=== PATIENT | female | born 1985 | race Caucasian/White ===

== ENCOUNTER 2024-03-27 10:37 | Emergency (ER) | payer OTHER, SELFPAY ==
[2024-03-27] VITALS (8 sets, daily range): BP systolic 85–102; BP diastolic 38–63; PULSE 61–96; RESP 14–18; TEMP 36.3–36.8; O2SAT 97–98; BMI 31.2
--- NOTE | ~2024-03-27 | XR_ITS ---
EXAMINATION: XR CHEST CLINICAL INFORMATION: Weakness with elevated white blood cell count. COMPARISON: None available. TECHNIQUE: Frontal view of the chest was obtained. FINDINGS: Limited portable exam. Lungs are hypoexpanded with questionable right lower airspace opacity. The cardiomediastinal silhouette is grossly normal. No sizable effusion. No pneumothorax. XR/XR chest 1V IMPRESSION: Limited exam. Hypoexpanded lungs with questionable airspace opacity in the right lower lung, atelectasis versus pneumonia.
--- NOTE | 2024-03-27 11:05 | ECG_ITS ---
Test Reason : HYPOTENSION Blood Pressure : / mmHG Vent. Rate : 070 BPM Atrial Rate : 070 BPM P-R Int : 166 ms QRS Dur : 090 ms QT Int : 420 ms P-R-T Axes : 035 044 034 degrees QTc Int : 454 ms Artifact in tracing Normal sinus rhythm Normal EKG No previous ECGs available Referred By: Elaina Maza Electronically Signed By:JOSE ROBERTO GAINES
--- NOTE | 2024-03-27 11:10 | ED_ITS ---
HPI - Weakness General Chief complaint: Recheck/Abnormal Lab/Rx Stated complaint: AMS,ABN LABS FROM [facility] PER EMS Time Seen by Provider: 03/27/24 10:44 Source: patient and old records reviewed Mode of arrival: EMS Limitations: no limitations History of Present Illness ED Provider: MIGNON HPI Narrative: 38 yo female with PMH of depression, GERD states 3 weeks ago she was put on lithium 600mg BID and since then she has been messed up she notes she is sleepy and not doing well. She is eating and drinking but she feels tired all the time. She was in respite for depression and failed then went to [facility] ED from there admitted to [facility] on 03/21. Per records it looks like on admission her lithium was 1.1 but they continued it and her BP was low in the 80s yet they continued the lithium and continued her on ativan despite sedation. For the blood pressure they started her on midodrine 5mg TID. Her WBC count was also elevated at 15. I am unsure why today they transferred her as her WBC count has been elevated since 03/16 and they continue to give her lithium with another draw yesterday showing level of 1.4. It looks like she got her AM medications today. after discussion with staff they note the patient's lithium was decreased and held yesterday Complaint: generalized weakness Onset (ago): week(s) (2) Duration: progressively worsening Location: generalized Migration: none Severity: moderate Relieving factors: rest Exacerbating factors: movement and exertion Context: new medication (states it started with lithium) Associated symptoms: denies other symptoms Related Data Home Medications ?Medication ?Instructions ?Recorded ?Confirmed buprenorphine 8 mg-naloxone 2 mg 1 film sublingual BID 03/27/24 03/27/24 sublingual film (Suboxone) chlorpromazine 200 mg tablet 200 mg PO BEDTIME 03/27/24 03/27/24 dextroamphetamine-amphetamine 30 30 mg PO BID 03/27/24 03/27/24 mg tablet diphenhydramine HCl 50 mg capsule 50 mg BEDTIME 03/27/24 03/27/24 fluoxetine 20 mg capsule 20 mg PO DAILY 03/27/24 03/27/24 lithium carbonate 150 mg capsule 450 mg PO BID 03/27/24 03/27/24 lorazepam 1 mg tablet (Ativan) 1 mg PO TID 03/27/24 03/27/24 midodrine 5 mg tablet 5 mg PO TID 03/27/24 03/27/24 trazodone 100 mg tablet 100 mg PO BEDTIME 03/27/24 03/27/24 Allergies Allergy/AdvReac Type Severity Reaction Status Date / Time aripiprazole [From Abilify] Allergy Rash Verified 03/27/24 11:08 Review of Systems 2 Review of Systems: Constitutional : No Fever, No Chills, pos Fatigue ENT/Mouth : No sore throat, No Rhinorrhea Eyes: No Eye Pain, No Swelling, No Redness Cardiovascular : No Chest Pain, No SOB, No Dyspnea on Exertion Respiratory : No Cough, No Sputum Gastrointestinal : No Nausea, No Vomiting, No Diarrhea, No abdominal Pain Genitourinary : No Dysuria, No Urinary Frequency, No Hematuria, Musculoskeletal : No joint pain, No Myalgias, No Joint Swelling Skin : No Skin Lesions, No rash Neuro : pos Weakness, No Numbness, No Dizziness, no Headache Psych : No Anxiety/Panic, No Depression All other systems reviewed and are negative [facility] Past Medical History Attestation statement: The following information was validated with the patient. Source: old records reviewed Medical History (Updated 03/27/24 @ 14:52 by Elaina Maza DO) GERD (gastroesophageal reflux disease) Depression Social History Social History (Updated 03/27/24 @ 11:29 by Elaina Maza DO) Patient Tobacco Use Status: Tobacco use Unknown Substance Use Type: Former Substance User Advance Directives: No Physical Exam 2 Vital Signs: Vital Signs: Last Vital Signs Temp 97.4 F 03/27/24 11:04 Pulse 65 03/27/24 14:19 Resp 14 03/27/24 14:19 BP 100/62 03/27/24 14:19 Pulse Ox 97 03/27/24 11:04 O2 Del Method Room Air 03/27/24 11:04 BMI result Body Mass Index 31.2 Appearance: sedated but easily woken. Oriented X3. No acute distress. Eyes: Pupils equal, round and reactive to light. 3mm no nystagmus ENT: Pharynx normal. Neck: Normal inspection. Neck supple. CVS: Normal heart rate and rhythm. Pulses normal. Respiratory: No respiratory distress. Breath sounds normal. Abdomen: Soft and nontender. Skin: Skin warm and dry. Normal skin color. Normal skin turgor. Extremities: No lower extremity edema. No calf ttp Neuro: Oriented X 3. No motor deficit. No sensory deficit. no clonus no hyperreflexia Course Course Course Narrative: BP up and responding. Reevaluation(s) Reevaluation #1: hypotension from medications and not infection or severe sepsis Medications Administered Discontinued Medications Generic Name Dose Route Start Last Admin Trade Name Epifanioq PRN Reason Stop Dose Admin Sodium Chloride 1,000 mls @ 999 mls/hr 03/27/24 11:04 03/27/24 12:25 Ns IV 03/27/24 12:04 Infused .Q1H1M ONE Infusion Sodium Chloride 1,000 mls @ 999 mls/hr 03/27/24 11:06 03/27/24 13:48 Ns IV 03/27/24 12:06 Infused .Q1H1M ONE Infusion Sodium Chloride 1,000 mls @ 999 mls/hr 03/27/24 12:49 03/27/24 15:01 Ns IV 03/27/24 13:49 Infused .Q1H1M ONE Infusion Midodrine 5 mg 03/27/24 12:49 03/27/24 12:53 Midodrine Hcl 5 Mg Tablet PO 03/27/24 12:50 5 mg ONCE ONE Administration Medical Decision Making Medical Decision Making [facility] Narrative: 38 yo female with depression, GERD with reported lab abnormalities since 03/16 of elevated WBC count but also lithium level 1.4 and yet they continue to dose her with lithium now with sedation and hypotension so they put her on midodrine. Has no infectious symptoms. I am re-ordering labs and giving 2L of IVF. She is sedated but reports she has been weak and lethargic since llithium and they gave her ativan this AM - I am not sure why. [place] has in fact been decreased and was held yesterday. Differential Diagnosis Differential Diagnoses: The differential diagnosis associated with the presentation includes polypharmacy, lithium toxicity Admission/Observation Consideration of admission/observation: Escalation of care including admission/observation considered physician observation started at 248pm pending improvement and waking up from medications she has no URI symptoms so pneumonia seems unlikely as she has had hypotension for days only CRP is elevated and WBC is downtrending without a cough Consult Healthcare Provider Management of the patient was discussed with: Brick [employer]er [employer] did assist with medications - it is hard to tell what she is on but would stop her clonidine, prazosin, stop or lower thorazine to 50mg QHS. stop lithium stop benadryl ativan only 0.5mg BID Lab Data MDM Lab Attestation statement: I reviewed the patient's lab results. 03/27/24 11:18 03/27/24 11:17 Labs: Lab Results 03/27/24 03/27/24 03/27/24 Range/Units 11:17 11:18 12:23 WBC 12.4 H (4.8-10.8) X10*3/uL RBC 3.66 L (4.20-5.50) X10*6/uL Hgb 10.6 L (12.0-16.0) g/dl Hct 30.9 L (37.0-47.0) % MCV 84.4 (80.0-98.0) fL MCH 29.0 (27.0-33.0) pg MCHC 34.3 (31.0-35.0) g/dl RDW 13.6 (11.0-16.0) % Plt Count 249 (160-400) X10*3/uL MPV 10.3 (9.4-12.3) fL Immature Gran % (Auto) 0.7 H (0.0-0.4) % Neut % (Auto) 72.2 (45-73) % Lymph % (Auto) 17.7 L (20-40) % [place] % (Auto) 6.9 (2-11) % Eos % (Auto) 2.2 (0-4) % Baso % (Auto) 0.3 (0-2) % Lymph # (Auto) 2.2 (1.2-4.9) X10*3/uL [place] # (Auto) 0.9 (0.1-1.2) X10*3/uL Eos # (Auto) 0.3 (0.0-0.4) X10*3/uL Baso # (Auto) 0.0 (0.0-0.2) X10*3/uL Abs Immat Gran (auto) 0.09 H (0.00-0.03) X10*3/uL Absolute Neuts (auto) 8.9 H (2.0-8.3) x10*3/uL Absolute Nucleated RBC 0.000 (0.0-0.012) X10*3/uL Nucleated RBC % (auto) 0.0 (0.0-0.2) /100WBC ESR 14 (0-20) MM/HR Hold Blue Top SEE NOTE Sodium 138 (135-145) mmol/L Potassium 3.4 (3.3-5.1) mmol/L Chloride 107 (96-108) mmol/L Carbon Dioxide 29 (22-29) mmol/L Anion Gap 5 L (12-20) BUN 7 L (9-16) mg/dL Creatinine 0.66 (0.5-1.4) mg/dL Estim Creat Clear Calc 99.5 Estimated GFR > 60 Random Glucose 95 (60-115) mg/dL Calcium 9.0 (8.4-10.2) mg/dL Magnesium 2.3 (1.6-2.6) mg/dL Total Bilirubin 0.3 (0.0-1.0) mg/dL Direct Bilirubin 0.2 (0.0-0.5) mg/dL AST 39 H (5-31) U/L ALT 32 H (0-31) U/L Alkaline Phosphatase 75 (39-117) U/L C-Reactive Protein 5.03 H (< or = 0.50) mg/dL Total Protein 6.4 L (6.5-8.0) g/dL Albumin 3.5 (3.5-5.0) g/dL Lipase 38 (8-78) U/L Procalcitonin 0.02 ng/mL TSH 3.32 (0.32-4.0) uIU/mL Beta HCG, Quant < 2 mIU/mL Urine Color Yellow Urine Appearance Clear Urine pH 7.0 (5.0-9.0) Ur Specific [place] <= 1.005 (1.005-1.025) Urine Protein Negative (Neg-Trace) mg/dL Urine Glucose (UA) Negative (Negative) mg/dL Urine Ketones Negative (Negative) mg/dL Urine Blood Negative (Negative) Urine Nitrite Negative (Negative) Ur Leukocyte Esterase Negative (Negative) Urine Opiates Screen Not Detected (Not Detect) Ur Buprenorphine Scrn Positive H (Not Detect) ng/mL Ur Oxycodone Screen Not Detected (Not Detect) ng/mL Urine Methadone Screen Not Detected (Not Detect) ng/mL Urine Fentanyl Screen Not Detected (Not Detect) Ur Barbiturates Screen Not Detected (Not Detect) Ur Phencyclidine Scrn Not Detected (Not Detect) Ur Amphetamines Screen POSITIVE H (Not Detect) U Benzodiazepines Scrn POSITIVE H (Not Detect) [place] 1.02 (0.60-1.20) mmol/L Urine Cocaine Screen Not Detected (Not Detect) U Marijuana (THC) Screen Not Detected (Not Detect) Influenza Type A (PCR) NEGATIVE (Negative) Influenza Type B (PCR) NEGATIVE (Negative) RSV RNA Qual (PCR) NEGATIVE (Negative) SARS-CoV-2 RNA (RT-PCR) NEGATIVE (Negative) Independent Interpretation I performed an independent interpretation of an: EKG and Plain X-Ray (hypoventilation) Interpretation: Rate: 70 Rhythm: NSR [place]: normal Normal P waves. Normal SAVANAH. Normal QRS complex. ST T wave : normal no HERNÁN qTC: 481 prior studies: no acute ischemia The study has been interpreted contemporaneously by me. . Radiology Impression Discussion of test interpretation with radiology: I have reviewed the radiologist's reading. Independent Historian Clinical information obtained from an independent historian. History obtained from or confirmed by: EMS External Record Review External record reviewed: Outpatient record and Prior outpatient labs Critical Care Time Critical Care Time Critical Care Time: Yes Total Critical Care Time: 60 Attestation: IVF x 3L for fluid resuscitation, labs, consult, review of records I attest to this time spent taking care of the patient Discharge Plan Discharge Clinical Impression: Polypharmacy, Chronic hypotension Adverse effect of drug Qualifiers: Encounter type: initial encounter Qualified Code(s): T50.905A - Adverse effect of unspecified drugs, medicaments and biological substances, initial encounter Patient Disposition: Still a Patient Additional Instructions: hold clonidine, prazosin, lower or hold thorazine 50mg QHS stop lithium stop benadryl ativan should only be 0.5mg BID Prescriptions: No Action fluoxetine 20 mg Capsule 20 mg PO DAILY buprenorphine-naloxone [Suboxone] 8-2 mg Film 1 film sublingual BID diphenhydramine HCl [Benadryl] 50 mg Capsule 50 mg BEDTIME midodrine 5 mg Tablet 5 mg PO TID Rx Instructions: do not give last dose of day after 6PM or within 4 hrs of bedtime dextroamphetamine-amphetamine 30 mg Tablet 30 mg PO BID Rx Instructions: administer doses at least 4-6 hours apart lorazepam [Ativan] 1 mg Tablet 1 mg PO TID chlorpromazine 200 mg Tablet 200 mg PO BEDTIME lithium carbonate 150 mg Capsule 450 mg PO BID trazodone 100 mg Tablet 100 mg PO BEDTIME Print Language: Japanese
[2024-03-27] MEDS: 0.9 % Sodium Chloride 1,000 ML 999 ML IV ×3 (11:19→13:48)
[2024-03-27 11:29] LABS: MANUAL DIFF FLAG NO
[2024-03-27 11:30] LABS: Basophils Percent Auto 0.3 % (0-2); Eosinophils Absolute Auto 0.3 X10*3/uL (0.0-0.4); Eosinophils Percent Auto 2.2 % (0-4); Hematocrit 30.9 % (37.0-47.0); Hemoglobin 10.6 g/dl (12.0-16.0); Imm Gran Abs Auto 0.09 X10*3/uL (0.00-0.03); Imm Gran Pct Auto 0.7 % (0.0-0.4); Lymphocytes Absolute Auto 2.2 X10*3/uL (1.2-4.9); Lymphocytes Percent Auto 17.7 % (20-40); Mean Corpuscular HGB Conc 34.3 g/dl (31.0-35.0); Mean Corpuscular Volume 84.4 fL (80.0-98.0); Mean Platelet Volume 10.3 fL (9.4-12.3); Monocytes Absolute Auto 0.9 X10*3/uL (0.1-1.2); Monocytes Percent Auto 6.9 % (2-11); Neutrophils Absolute Auto 8.9 x10*3/uL (2.0-8.3); Neutrophils Percent Auto 72.2 % (45-73); Platelet Count 249 X10*3/uL (160-400); Red Blood Count 3.66 X10*6/uL (4.20-5.50); Red Cell Distribution Width 13.6 % (11.0-16.0); White Blood Count 12.4 X10*3/uL (4.8-10.8)
[2024-03-27 11:39] LABS: Lithium 1.02 mmol/L (0.60-1.20)
[2024-03-27 11:54] LABS: Alanine Aminotransferase 32 U/L (0-31); Albumin Level 3.5 g/dL (3.5-5.0); Alkaline Phosphatase 75 U/L (39-117); Anion Gap 5 (12-20); Aspartate Amino Transferase 39 U/L (5-31); Bilirubin Direct 0.2 mg/dL (0.0-0.5); Bilirubin Total 0.3 mg/dL (0.0-1.0); Blood Urea Nitrogen 7 mg/dL (9-16); C Reactive Protein 5.03 mg/dL (< or = 0.50); Carbon Dioxide 29 mmol/L (22-29); Chloride 107 mmol/L (96-108); Creatinine Clr Calc Pharmacy 99.5; Estimated Glomerular Filt Rate > 60; Glucose Random 95 mg/dL (60-115); Lipase 38 U/L (8-78); Magnesium 2.3 mg/dL (1.6-2.6); Potassium 3.4 mmol/L (3.3-5.1); Sodium 138 mmol/L (135-145); Total Protein 6.4 g/dL (6.5-8.0)
[2024-03-27 12:08] LABS: Erythrocyte Sedimentation Rate 14 MM/HR (0-20); Influenza A PCR NEGATIVE (Negative); Influenza B PCR NEGATIVE (Negative); Resp Syncy Virus RNA Qual PCR NEGATIVE (Negative); SARS COV2 PCR INHOUSE NEGATIVE (Negative)
[2024-03-27 12:09] LABS: HCG Quantitative < 2 mIU/mL; Procalcitonin 0.02 ng/mL
[2024-03-27 12:14] LABS: TSH reflex Free T4 3.32 uIU/mL (0.32-4.0)
[2024-03-27 12:40] LABS: Appearance Urine Clear; Color Urine Yellow; Glucose Urine UA Negative (Negative); Leukocyte Esterase Urine Negative (Negative); Nitrite Urine Negative (Negative); Specific Gravity - Urine <= 1.005 (1.005-1.025); Urine Blood Negative (Negative); Urine Ketones Negative (Negative); Urine Protein Negative (Neg-Trace)
[2024-03-27 12:46] LABS: Amphetamine Screen Urine POSITIVE (Not Detect); Barbiturates, Urine Not Detected (Not Detect); Benzodiazepines Screen Urine POSITIVE (Not Detect); Buprenorphine Scr Positive (Not Detect); Cannabinoid Screen Urine Not Detected (Not Detect); Cocaine Screen Urine Not Detected (Not Detect); Fentanyl, urine Not Detected (Not Detect); Methadone Screen, Urine Not Detected (Not Detect); Opiate Screen Urine Not Detected (Not Detect); Oxycodone Screen Urine Not Detected (Not Detect); Phencyclidine Screen Urine Not Detected (Not Detect)
[2024-03-27] MEDS: Midodrine HCl 5 MG TABLET PO (12:53)
--- NOTE | 2024-03-27 19:18 | PC.NURSE ---
Patient woke up, walked to BR with steady gait, returned to stretcher asking when they are going to leave, informed patient that they are going to stay in ED for observation for a while as she is still very drowsy with no clear reason & her BP is mildly improved. Patient went back to sleep.
--- NOTE | 2024-03-27 20:01 | PC.NURSE ---
Spoke to RN at [facility] , informed them that patient is still rather somnolent and potentially overmedicated, will keep in ED overnight to observe.
--- NOTE | 2024-03-27 23:13 | PC.NURSE ---
assumed care at 2314
[2024-03-28] VITALS (10 sets, daily range): BP systolic 87–106; BP diastolic 46–68; PULSE 64–77; RESP 12–16; TEMP 36.1–37; O2SAT 93–99
[2024-03-28] MEDS: 0.9 % Sodium Chloride 2,000 ML 999 ML IVCONT (00:19)
[2024-03-28] MEDS: Midodrine HCl 10 MG TABLET PO (00:19)
--- NOTE | 2024-03-28 00:28 | PC.NURSE ---
pt sbp's 80's, Dr. العلي aware, pt placed in trendelenburg postion. NS saline infusing, medicated per mar, also placed on [address] العلي
--- NOTE | 2024-03-28 06:04 | PC.NURSE ---
Nurse Hunt from [facility] updated on plan of care via telephone.
--- NOTE | 2024-03-28 07:58 | PC.NURSE ---
patient wakes up with verbal stimuli, respirations equal and unlabored, VSS, skin dry and intact. patient is alert and oriented x3, states she feels better. given a leandro britta as requested. sitter at bedside 1:1
[2024-03-28] MEDS: Dextroamphetamine/Amphetamine XR 10 MG CAP.ER.24H 30 MG PO (08:48)
[2024-03-28] MEDS: LORazepam 0.5 MG TABLET PO (08:48)
--- NOTE | 2024-03-28 09:19 | PC.NURSE ---
patient transferred back to [facility]
== END 2024-03-28 09:19 ==
PROVIDERS: Emergency Medicine; Emergency Provider Emergency Medicine
DX: T43.591A Poisoning by other antipsychotics and neuroleptics, accidental (unintentional), initial encounter (principal); I95.89 Other hypotension; R53.1 Weakness; Y92.9 Unspecified place or not applicable; R41.82 Altered mental status, unspecified; F32.A Depression, unspecified; Z03.818 Encounter for observation for suspected exposure to other biological agents ruled out; Z79.899 Other long term (current) drug therapy; F11.20 Opioid dependence, uncomplicated
CPT/HCPCS: 0241U; 36415; 71045; 80048; 80076; 80178; 80307; 81003; 83690; 83735; 84145; 84443; 84702; 85025; 85652; 86140; 93005; 96360; 96361; 99285

== ENCOUNTER → 2024-03-27 11:05 | Outpatient (BNV) | payer OTHER, SELFPAY | PROVIDERS: Emergency Provider Emergency Medicine; Visit Provider Internal Medicine | DX: I10 Essential (primary) hypertension (principal) | CPT/HCPCS: 93010 ==